=== PATIENT | male | born 1990 | race Caucasian/White ===

== ENCOUNTER 2021-01-28 05:45 | Emergency (ER) | payer OTHER ==
[~2021-01-28] VITALS: Ht 167.6 cm; Wt 75.7 kg
[2021-01-28 05:52] VITALS: BP 144/86
--- NOTE | 2021-01-28 05:52 | NUR ---
TO BED AMBULATORY
--- NOTE | 2021-01-28 06:05 | NUR ---
30 YO/M BIB SELF W C/O OF THROAT IRRITATION X4 DAYS 4/10 W DIFFICULTY SWALLOWING D/T PAIN. PATIENT REPORTS APPROX 4 DAYS AGO HE GOT A FISH BONE STUCK TO THE BACK OF HIS THROAT AND WAS ABLE O PULL IT OUT. PATIENT DENIES ANY FEVERS, N/V, OR DIARRHEA, OR SOB. PATIENT ALSO REPORTS HE STARTED COUGHING X1 HOUR AGO D/T THE THROAT IRRITATION, DENIE SCOUGHING BLOOD. PATIENT THROAT OBSERVED RED. PATIENT ABLE TO SPEAK IN FULL SENTENCES. PATIENT SITTING IN BED LOCKED IN LOWEST POSITION W X1 SIDERAIL UP. BREATHING EVEN AND UNLABORED. NAD NOTED, WILL CONTTINUE TO MONITOR. PATIENT TOOK 30ML NYQUIL, NUMBING THROAT SPRAY, AND ALLERGY PILL AT 0000 W/O RELIEF OF THROAT IRRITATION. PMH: NUZHATIES ROLANDO
--- NOTE | 2021-01-28 06:26 | NUR ---
CT OF NECK W CONTRAST CONSENT SIGNED BY PATIENT AND ERMD.
--- NOTE | 2021-01-28 07:14 | NUR ---
Report and continuation of care received from KIP Eden.
--- NOTE | 2021-01-28 07:14 | NUR ---
Pt report given to KIP GARCIA. Transfer of care at this time.
--- NOTE | 2021-01-28 08:28 | NUR ---
RAPID strep swab collected, handed to CPT. Theodore
[2021-01-28] MEDS ORDERED: BENZ-196 PO (08:52)
[2021-01-28] MEDS ORDERED: BENZ1LOZ98 PO (08:52)
--- NOTE | 2021-01-28 09:40 | NUR ---
Patient discharged with v/s stable. Written and verbal after care instructions given and explained. Patient alert, oriented and verbalized understanding of instructions. Ambulatory with steady gait. All questions addressed prior to discharge. ID band removed. Patient advised to follow up with PMD. Rx of Tessalon, Cepacol Sore Throat Logenze given. Patient educated on indication of medication including possible reaction and side effects. Opportunity to ask questions provided and answered.
[2021-01-28 09:41] VITALS: BP 138/82
== END 2021-01-28 09:40 | disposition home or self-care (01) ==
LOC: MED 05:45
DX: J02.9 Acute pharyngitis, unspecified (principal); Z79.899 Other long term (current) drug therapy
CPT/HCPCS: 70491; 87081; 99285; Q9967